=== PATIENT | female | born 1950 | race Caucasian/White ===

== ENCOUNTER → 2017-02-07 | Outpatient (CLI) | payer MEDICARE ==
--- NOTE | 2017-02-07 12:15 | KCIC ---
THYROID ULTRASOUND History: Thyroid nodule Comparison: None. Findings: Multiple sonographic images of the thyroid gland are submitted. Right lobe measured 4.6 x 1.6 x 2 cm. Left lobe measured 4.8 x 1.7 x 1.7 cm. Mid to superior solid nodule of the right gland measured 1.1 x 0.5 x 0.9 cm with associated internal vascularity. Solid nodule of the mid right gland measured 1.3 x 1 x 1.2 cm with internal vascularity. There is 0.9 x 0.7 x 0.9 cm hypoechoic, slightly heterogeneous likely cystic lesion of the inferior right gland, no internal vascularity. Isthmus measures 0.2 cm in thickness. There is a hypoechoic nodule of the mid to superior left gland up to 0.7 x 0.5 x 0.5 cm with internal vascularity on color Doppler imaging. There is a separate hypoechoic nodule of the mid left gland up to 0.4 x 0.3 x 0.4 cm. There is also solid heterogeneous nodule of the inferior left gland up to 0.8 x 0.5 x 0.6 cm. There is heterogeneity of the thyroid parenchyma bilaterally. Impression: 1. There are bilateral thyroid nodules, largest on the right up to 1.3 cm. There are no previous exams to evaluate for change. Electronically signed by: Rayshawn Espana MD (02/07/2017 12:12 PM) [id number]
--- NOTE | 2017-02-07 13:04 | KCIC ---
3 view right knee HISTORY: Sharp right knee pain for 2 or 3 weeks. No known injury. FINDINGS: No bone lesion or acute fracture. Joint spaces are maintained. Mild fullness in the suprapatellar region may indicate a joint effusion. IMPRESSION: No acute fracture or dislocation. Possible joint effusion. Electronically signed by: oLuis Holden MD (02/07/2017 1:00 PM) [id number]
== END | disposition home or self-care (01) ==
LOC: KCIC US 10:54
PROVIDERS: ATTEND Nurse Practitioner Family
DX: M25.561 Pain in right knee (principal); E04.1 Nontoxic single thyroid nodule
CPT/HCPCS: 73562; 76536